=== PATIENT | female | born 1985 | race Caucasian/White ===

== ENCOUNTER 2017-05-27 05:08 | Inpatient (IN) | payer OTHER ==
[2017-05-27] VITALS (15 sets, daily range): BP systolic 107–129; BP diastolic 53–66
[~2017-05-27] VITALS: Ht 160 cm; Wt 100.6 kg
[~2017-05-27 05:08] MED LIST: AUGMENTIN875 MG PO; IBUPROFEN800 MG PO; PRENATAL TABLE1 EAC3 PO; TYLENOL REGULA325 MG PO
[2017-05-27] MEDS ORDERED: BUSPAR10 MG PO (06:19)
[2017-05-27] MEDS ORDERED: TYLENOL EXTRA500 MG PO (06:20)
[2017-05-27 09:15] LABS: BASOPHIL (%) 0.3 % (0-1); EOSINOPHIL (%) 0.1 % (0-5); HEMATOCRIT 35.6 % (36.0-46.0); IMMATURE GRANULOCYTE (%) 0.5 % (0.0-0.7); LYMPHOCYTE (%) 9.3 % (15-42); LYMPHOCYTE COUNT 0.7 K/uL (1.0-2.8); MCH 27.5 PG (29.0-34.0); MCHC 33.7 G/DL (30.0-36.0); MCV 81.5 FL (83-99); MONOCYTE (%) 5.2 % (3-12); MONOCYTE COUNT 0.4 K/uL (0-0.8); NEUTROPHIL (%) 84.6 % (45-76); NEUTROPHIL COUNT 6.5 K/uL (1.8-6.4); PLATELET COUNT 206 K/uL (156-360); RBC DIS.WIDTH-CV 13.9 % (11.8-14.6); RED BLOOD COUNT 4.37 M/uL (3.80-5.20); WHITE BLOOD COUNT 7.6 K/uL (4.1-10.2)
[2017-05-28 07:13] LABS: BASOPHIL (%) 0.1 % (0-1); EOSINOPHIL (%) 0.4 % (0-5); HEMOGLOBIN 10.6 G/DL (11.9-15.5); IMMATURE GRANULOCYTE (%) 0.5 % (0.0-0.7); LYMPHOCYTE (%) 20.2 % (15-42); LYMPHOCYTE COUNT 1.6 K/uL (1.0-2.8); MCH 26.8 PG (29.0-34.0); MCHC 33.1 G/DL (30.0-36.0); MONOCYTE (%) 5.6 % (3-12); MONOCYTE COUNT 0.5 K/uL (0-0.8); NEUTROPHIL (%) 73.2 % (45-76); NEUTROPHIL COUNT 5.9 K/uL (1.8-6.4); PLATELET COUNT 192 K/uL (156-360); RBC DIS.WIDTH-CV 13.9 % (11.8-14.6); RBC DIS.WIDTH-SD 40.6 % (39-53); RED BLOOD COUNT 3.95 M/uL (3.80-5.20)
[2017-05-28 07:57] VITALS: BP 116/66
[2017-05-28 15:33] VITALS: BP 120/58
[2017-05-28 22:43] VITALS: BP 127/65
== END 2017-05-29 13:30 | disposition home or self-care (01) | DRG 775 ==
LOC: LDRP-OP 05:08 → 2WEST 05:09 → LDRP-OP 06-20 08:30
PROVIDERS: Advanced Practice Midwife
DX: O48.0 Post-term pregnancy (principal); O99.344 Other mental disorders complicating childbirth; O99.214 Obesity complicating childbirth; J10.1 Influenza due to other identified influenza virus with other respiratory manifestations; E66.9 Obesity, unspecified; O69.1XX0 Labor and delivery complicated by cord around neck, with compression, not applicable or unspecified; K58.9 Irritable bowel syndrome, unspecified; O99.52 Diseases of the respiratory system complicating childbirth; O99.62 Diseases of the digestive system complicating childbirth; Z3A.41 41 weeks gestation of pregnancy; Z37.0 Single live birth
CPT/HCPCS: 85025; 87502; J7120